=== PATIENT | male | born 1960 | race Caucasian/White ===

== ENCOUNTER → 2017-03-19 | Outpatient (CLI) | payer OTHER | LOC: CIMAGING 08:21 → EDSTATUS 08:23 → CIMAGING 08:24 | PROVIDERS: ATTEND Family Medicine | DX: M51.37 Other intervertebral disc degeneration, lumbosacral region (principal); M16.11 Unilateral primary osteoarthritis, right hip; M85.68 Other cyst of bone, other site | CPT/HCPCS: 72100-PO; 73521-PO ==

== ENCOUNTER 2018-07-09 10:39 | Inpatient (IN) | payer OTHER ==
--- NOTE | 2018-07-09 07:23 | PDHPUP ---
History & Physical Update H&P update statement: This history and physical update is based on an assessment of the patient which was completed after admission or registration (within 24 hours), but prior to the surgery/procedure. H&P update: H&P reviewed & patient examined, no change in patient's condition since H&P completed
[~2018-07-09 10:39] MED LIST: ROPIVACAINE 0.2% 80 MG, EPINEPHrine 0.2 MG, KETOROLAC TROMETHAMINE 30 MG in SYRINGE 0 ML IU ONE; TRANEXAMIC ACID 3,000 MG in NS (SYRINGE) 50 ML IRR ONE; TRANEXAMIC ACID 3,000 MG/50 ML BAG IRR ONE
[2018-07-09] MEDS ORDERED: ceFAZolin 2 GM/DEXTROSE 100 ML IV ONE (11:03)
[2018-07-09] MEDS ORDERED: DEXAMETHASONE 4 MG/ML VIAL IVP ONE (11:03)
[2018-07-09] MEDS ORDERED: FAMOTIDINE 20 MG TAB PO ONE (11:03)
[2018-07-09] MEDS ORDERED: ACETAMINOPHEN 325 MG TAB PO ONE (11:03)
[2018-07-09] MEDS ORDERED: LR 1,000 ML IV ONE (11:05)
[2018-07-09] MEDS ORDERED: ONDANSETRON 4 MG/2 ML VIAL IVP PRN ×2 (11:34→14:51)
[2018-07-09] MEDS ORDERED: PROMETHAZINE HCL 25 MG/ML INJ IVP PRN ×2 (11:34→14:51)
[2018-07-09] MEDS ORDERED: MIDAZOLAM 2 MG/2 ML VIAL IVP ONE (11:34)
[2018-07-09] MEDS ORDERED: NALOXONE HCL 0.4 MG/ML INJ IVP PRN (11:34)
[2018-07-09] MEDS ORDERED: PHENYLEPHRINE HCL 100 MCG/ML SYR IVP PRN (11:34)
[2018-07-09] MEDS ORDERED: LR 500 ML IV PRN (11:34)
[2018-07-09] MEDS ORDERED: oxyCODONE IR 5 MG TAB PO PRN (11:34)
[2018-07-09] MEDS ORDERED: HYDROmorphONE/DILAUDID 2 MG/ML INJ IVP PRN (11:34)
[2018-07-09] MEDS ORDERED: ONDANSETRON 4 MG/2 ML VIAL ONE (11:37)
[2018-07-09] MEDS ORDERED: LIDOCAINE 2% 5 ML SDV ONE (11:37)
[2018-07-09] MEDS ORDERED: PROPOFOL 200 MG/20 ML VIAL ONE (11:37)
[2018-07-09] MEDS ORDERED: PROPOFOL/EMULSION 500 MG/50 ML BOTTLE IV ONE ×2 (11:38→11:46)
[2018-07-09] MEDS ORDERED: BUPIVACAINE/DEXTROSE 7.5MG/ML 2 ML SPINAL AMP SP ONE (11:50)
--- NOTE | 2018-07-09 12:44 | PDANEPAE ---
ANE Past Medical History - Cardiovascular History Hx Hypertension: No Hx Arrhythmias: No Hx Chest Pain: No Hx Coronary Artery / Peripheral Vascular Disease: No Hx CHF / Valvular Disease: No Hx Palpitations: No Cardiovascular History Comment: HX BORDERLINE ELEV BP - Pulmonary History Hx COPD: No Hx Asthma/Reactive Airway Disease: No Hx Recent Upper Respiratory Infection: No Hx Oxygen in Use at Home: No Hx Sleep Apnea: Yes Sleep Apnea Screening Result - Last Documented: Positive Pulmonary History Comment: POS DORY W/CPAP - Neurologic History Hx Cerebrovascular Accident: No Hx Seizures: No Hx Dementia: No - Endocrine History Hx Diabetes: No - Renal History Hx Renal Disorders: No - Liver History Hx Hepatic Disorders: No - Neurological & Psychiatric Hx Hx Neurological and Psychiatric Disorders: No - Cancer History Hx Cancer: No Cancer History Comment: BASAL CELL REMOVED - Congenital Disorder History Hx Congenital Disorders: No - GI History Hx Gastrointestinal Disorders: No - Other Health History Other Health History: R EYE NO SIGHT FROM PAST GLAUCOMA - Chronic Pain History Chronic Pain: Yes (R HIP) - Surgical History Prior Surgeries: BIRTHMARK R SIDE OF FACE INFANCY. CAUSING GLAUCOMA. ADULT GLAUCOMA PROCEDURE. BASAL CELL REMOVED EAR LOBE. COLONOSCOPY ANE Review of Systems Review of Systems: - Exercise capacity METS (RN): 4 METS ANE Patient History - Allergies Allergies/Adverse Reactions: No Known Allergies Allergy (Verified 06/10/18 14:37) - Home Medications Home Medications: Acetaminophen [Tylenol 325mg (*)] 1,950 mg PO BID 06/10/18 [Last Taken 07/07/18] Cholecalciferol Vit D3 [Vitamin D3 (*)] 3,000 units PO DAILY 06/10/18 [Last Taken 06/18/18] Diclofenac Sodium [Voltaren 75 MG (*)] 75 mg PO BID 06/10/18 [Last Taken ] Herbals/Supplements -Info Only 1 ea PO DAILY 06/10/18 [Last Taken 06/25/18] Ibuprofen [Motrin (*)] 800 mg PO TID 06/10/18 [Last Taken 06/25/18] Magnesium Oxide [Magnesium Oxide 400 mg (*)] 400 mg PO DAILY 06/10/18 [Last Taken 07/05/18] Vitamin B Complex [Vitamin B Complex (OTC)] 1 each PO DAILY 06/10/18 [Last Taken 06/29/18] traMADol [Ultram 50 mg (*)] 50 mg PO Q4HRS PRN 06/10/18 [Last Taken 07/07/18] Atorvastatin Calcium 06/14/18 [Last Taken 07/08/18] Fish Oil 1000 mg (*) 06/14/18 [Last Taken 06/25/18] Lidocaine 06/14/18 [Last Taken 07/07/18] Ranitidine HCl 06/14/18 [Last Taken 07/07/18] Celebrex 400 mg PO 07/09/18 [Last Taken 07/08/18] - NPO status NPO Since - Liquids (Date): 07/09/18 NPO Since - Liquids (Time): 09:30 NPO Since - Solids (Date): 07/08/18 NPO Since - Solids (Time): 18:00 - Smoking Hx Smoking Status: Former smoker - Family Anes Hx Family Hx Anesthesia Complications: NEG ANE Labs/Vital Signs - Vital Signs Blood Pressure: 146/89 Heart Rate: 56 Respiratory Rate: 16 O2 Sat (%): 91 Height: 180.34 cm Weight: 104.326 kg ANE Physical Exam - Airway Neck exam: FROM Mallampati Score: Class 2 Mouth exam: normal dental/mouth exam - Pulmonary Pulmonary: no respiratory distress - Cardiovascular Cardiovascular: regular rate and rhythym, no murmur, rub, or gallop - ASA Status ASA Status: II ANE Anesthesia Plan Anesthesia Plan: spinal
[2018-07-09] MEDS ORDERED: ePHEDrine SULFATE 25 MG/5 ML SYR ONE (14:08)
[2018-07-09] MEDS ORDERED: PHENYLEPHRINE HCL 100 MCG/ML SYR ONE (14:35)
[2018-07-09] MEDS ORDERED: METOCLOPRAMIDE 10 MG/2 ML VIAL IVP PRN (14:51)
[2018-07-09] MEDS ORDERED: TEMAZEPAM 15 MG CAP PO PRN (14:51)
[2018-07-09] MEDS ORDERED: DIPHENOXYLATE/ATROPINE LOMOTIL 1 TAB PO PRN (14:51)
[2018-07-09] MEDS ORDERED: BISACODYL 10 MG SUPP PR PRN (14:51)
[2018-07-09] MEDS ORDERED: POLYETHYLENE GLYCOL 3350 17 GM PKT PO PRN (14:51)
[2018-07-09] MEDS ORDERED: CYCLOBENZAPRINE 10 MG TAB PO PRN (14:51)
[2018-07-09] MEDS ORDERED: MAGNESIUM HYDROXIDE 30 ML UDCUP PO PRN (14:51)
[2018-07-09] MEDS ORDERED: ONDANSETRON DISINTEGRATING 4 MG TAB PO PRN (14:51)
[2018-07-09] MEDS ORDERED: diphenhydrAMINE 25 MG CAP PO PRN (14:51)
[2018-07-09] MEDS ORDERED: LACTULOSE 20 GM/30 ML UDCUP PO PRN (14:51)
[2018-07-09] MEDS ORDERED: PROMETHAZINE HCL 25 MG SUPPR PR PRN (14:51)
--- NOTE | 2018-07-09 14:51 | POSTOPPROG ---
Post Op Note Date of Operation: 07/09/18 Surgeon: Torrey Dasilva Mission Planner: guzman dasilva PA-C Anesthesiologist: dr. maya Anesthesia: Spinal Pre-op Diagnosis: right hip OA and AVN Post-op Diagnosis: same Indication: right hip pain Procedure: R PATRICIA ant approach, robot assisted Findings: severe hip OA and AVN Inf/Abcess present in the surg proc area at time of surgery?: No EBL: 100-500
[2018-07-09] MEDS ORDERED: traMADol 50 MG TAB PO PRN (14:52)
[2018-07-09] MEDS ORDERED: LR 1,000 ML IV SCH (15:00)
--- NOTE | 2018-07-09 15:06 | PDMN ---
Medical Necessity Medical necessity: [facility] [place] S560 hip arthroplasty INPT only OP: R PATRICIA auth# [id number]. AUTH# [id number] APPROVED FOR CPT 80276 DONE INPNT LOS 1 DAY
[2018-07-09] MEDS ORDERED: fentaNYL 100 MCG/2 ML INJ ONE (15:31)
[2018-07-09] MEDS: fentaNYL 100 MCG/2 ML INJ IVP PRN ×3 (15:33→15:53)
[2018-07-09] MEDS ORDERED: HYDROmorphONE/DILAUDID 2 MG/ML INJ ONE (16:38)
--- NOTE | 2018-07-09 16:41 | POSTANESTH ---
Post Anesthetic Evaluation Cardiovascular Status: Normal, Stable Respiratory Status: Normal, Stable Level of Consciousness/Mental Status: Can Participate in Eval Pain Control: Adequate, Prn Tx Ordered Nausea/Vomiting Control: Adequate, Prn Tx Ordered Complications Possibly Related to Anesthesia: None Noted
[2018-07-09] MEDS ORDERED: oxyCODONE IR 5 MG TAB ONE (16:50)
[2018-07-09] MEDS: oxyCODONE IR 5 MG TAB PO PRN (16:51)
[2018-07-09] MEDS: ACETAMINOPHEN 325 MG TAB PO SCH ×2 (18:28→23:37)
[2018-07-09] MEDS: ASPIRIN 81 MG CHEWABLE TAB PO SCH (23:37)
[2018-07-09] MEDS: FAMOTIDINE 20 MG TAB PO SCH (23:37)
[2018-07-09] MEDS: SENNOSIDES/DOCUSATE SODIUM TAB PO SCH (23:37)
[2018-07-09] MEDS: ceFAZolin 2 GM/DEXTROSE 100 ML IV SCH (23:38)
[2018-07-10] MEDS: oxyCODONE IR 5 MG TAB PO PRN ×3 (00:28→08:54)
[2018-07-10] MEDS: ACETAMINOPHEN 325 MG TAB PO SCH ×2 (05:41→11:41)
[2018-07-10] MEDS: ceFAZolin 2 GM/DEXTROSE 100 ML IV SCH (05:42)
--- NOTE | 2018-07-10 05:42 | GOP ---
DATE OF OPERATION: 07/09/2018 SURGEON: Hafsa Rosales MD CLERK RATING: Beata Rosales, JACQUIE. ANESTHESIA: Spinal. PREOPERATIVE DIAGNOSIS: Right hip osteoarthritis. POSTOPERATIVE DIAGNOSIS: Right hip osteoarthritis. PROCEDURE PERFORMED: Right total hip arthroplasty with computer navigation, robotic assist. FINDINGS: ESTIMATED BLOOD LOSS: 200 cc. INDICATIONS: The patient has progressively worsening arthritis of the hip which has failed medical m anagement. The patient understands the treatment option including continued non-operative care and h as selected surgical intervention. The patient has decided to undergo total hip arthroplasty via the direct anterior approach understanding the risks of the procedure including, but not limited to, wood rovascular injury, infection, persistent pain, component wear and loosening, deep venous thrombosis, pulmonary embolism, limb length inequality (including dislocation), and intraoperative fractures. DESCRIPTION OF PROCEDURE: After proper identification of the patient including verification and fernando ing the surgical site, the patient was brought to the operating room and placed in the supine positio n. All bony prominences were well padded. Anesthesia was induced without complication and intraveno us prophylactic antibiotics were administered prior to skin incision. After prepping and draping in the usual sterile fashion, attention was drawn to the contralateral pel vis for attachment of the computer navigation tracker. Three percutaneous incisions were made over t he iliac crest and the pelvic tracker was affixed using threaded 3.5 mm pins yielding excellent fixat ion. Using computer navigation the patient's leg length and topographical pelvic anatomy was registe red without complication. Attention was then drawn to surgical exposure of the hip. An incision was made with a #10 Bard Vaibhav r blade starting 3 cm lateral and 3 cm distal to the anterior superior iliac spine measuring 8 cm to 10 cm and coursing distally toward the greater trochanter. The skin and subcutaneous tissues were di vided sharply down the fascia chilo. The fascia chilo was incised in line with the skin incision expos ing the underlying tensor fascia chilo muscle. This muscle was bluntly elevated from the fascia and t he first extracapsular Cobra retractor was placed laterally at the junction of the superior femoral n josie and greater trochanter. The lateral femoral circumflex vessels were identified, cauterized and d ivided with the Aquamantys bipolar cautery. The deep investing fascia of the TFL was divided to allo w proper mobilization of the muscle preventing damage during retraction. The reflected head of the r ectus femoris muscle was elevated off the anterior hip capsule and a medial Cobra retractor was place d just proximal to the lesser trochanter. The anterior capsulotomy was made sharply from the superolateral acetabulum to the saddle junction of the superior femoral neck and greater trochanter, then coursing inferomedial towards the lesser troc hanter. The retractors were then placed in the intracapsular position for femoral neck osteotomy. C orresponding to preoperative templating the osteotomy was made with the oscillating saw protecting th e greater trochanter and soft tissues. The femoral head was removed from the acetabulum with a corks crew and confirmed to be severely arthritic with exposed bone, deformity and osteophytes. Similar fi nding were confirmed in the acetabulum. The Arch table extension was then placed in 40 degrees external rotation. Attention was then drawn t o the acetabular preparation. After placement of the anterior and posterior Cobra retractors outside the labrum and intrascapular the circumferential labrum was removed sharply. The foveal contents we re then removed and hemostasis obtained with cautery. The anatomy of the acetabulum was then registe red using computer navigation. The first reamer selected was sized using the removed femoral head. Reaming began with robotic aram t at 40 degrees of abduction and 20 degrees of anteversion using computer navigation. Reaming ceased 0 mm less than the definitive acetabular component. The final acetabular component was inserted usi ng the computer to achieve proper orientation yielding excellent purchase and stability in the acetab ulum. The final acetabular liner was then placed and its seating confirmed. Attention was then turned to the femur. The Arch table extension was placed in extension and adducti on delivering the osteotomized femoral neck into the wound. A 2-pronged femoral elevator was placed at the calcar and another at the tip of the greater trochanter. The posterolateral capsule was relea sed with cautery allowing mobilization of the femur lateral and anterior for preparation. The shipping hand al rotators were visualized and preserved. A curette and rongeur were used to open the starting poin t for broaching. Serial broaching started with the #0 broach and ended with the broach that exhibited excellent fit in the proximal femur. A change in pitch during mallet strikes was accompanied by the inability to advance the broach any further. The trial reduction was performed and fluoroscopic ministerio igation was utilized to check limb length. Adjustments were made to equalize limb length accordingly . After the final trials were accepted they were removed and the wound was copiously lavaged. The femo ral component was seated to the same depth as the final broach and the femoral head was impacted onto the clean trunnion. The hip was then reduced for the final time and once more fluoroscopic navigati on used to check that limb length equality was achieved. The wound was irrigated and closed in layers, the fascia chilo with 2-0 Quill, the subcutaneous tissue with a 2-0 Quill, and the skin with Dermabond, including the small incisions for computer navigation . Sterile dressings were applied. Final sharps and sponge counts were accurate. The patient was th en transferred to a hospital bed and brought to the recovery room in stable condition. IMPLANTS: Accolade II size 6 and 132 acetabular component, a 58 mm Trident II, the liner is a Triden t X3 36 mm, head is a Biolox Delta 36 mm/+7.5. /[id number]/MODL
[2018-07-10 08:45] VITALS: BP 115/57
[2018-07-10] MEDS: SENNOSIDES/DOCUSATE SODIUM TAB PO SCH (08:52)
[2018-07-10] MEDS: ASPIRIN 81 MG CHEWABLE TAB PO SCH (08:53)
[2018-07-10] MEDS: FAMOTIDINE 20 MG TAB PO SCH (08:53)
--- NOTE | 2018-07-10 10:49 | SOAPPROG ---
SOAP Progress Note Assessment/Plan: Assessment: Patient is doing well POD 1 s/p R PATRICIA Pain management: pain is well controlled on oral pain meds. VTE ppx: recommend aspirin 81 mg BID for 4 weeks, cont KYLE and SCDs Anemia: level is expected initially postop. Asymptomatic. Continue to monitor D/c planning:patient has done much better than anticipated. Patient is stable, BP stable, pain well controlled and patient is eager for discharge to home. May d/c to home today pending release from PT Plan: 07/10/18 10:48 Subjective: patient is doing well today, denies SOB ,chest pain and n/V Objective: Vital Signs Temp Pulse Resp BP Pulse Ox 37.0 C 59 L 16 115/57 L 93 07/10/18 08:00 07/10/18 08:00 07/10/18 08:00 07/10/18 08:00 07/10/18 08:00 Laboratory Results 07/10/18 04:52 07/09/18 07/10/18 07/11/18 05:59 05:59 05:59 Intake Total 2687 Output Total 725 400 Balance 1962 -400 RLE: incision dressing is clean and dry, NVI, +pf/df ICD10 Worksheet Patient Problems: Problems Problem Status Onset Primary localized osteoarthritis of right hip Acute
[2018-07-10] MEDS ORDERED: ATORVASTATIN CALCIUM 40 MG TAB PO SCH (21:00)
== END 2018-07-10 12:20 | disposition home or self-care (01) | DRG 470 ==
LOC: F3N 10:39
PROVIDERS: ADMIT Orthopaedic Surgery; ATTEND Orthopaedic Surgery
DX: M16.11 Unilateral primary osteoarthritis, right hip (principal); D62 Acute posthemorrhagic anemia; G47.33 Obstructive sleep apnea (adult) (pediatric)
CPT/HCPCS: 97161-GP; J0171; J0690; J1100; J1170; J1885; J2250; J2370; J2405; J2704; J2795; J3010